=== PATIENT | male | born 1955 ===

== ENCOUNTER 2020-12-04 11:00 | Outpatient (CLI) | payer OTHER, SELFPAY | END 2020-12-04 11:01 | disposition home or self-care (01) | LOC: CHSCOVIDVC 11:00 | DX: Z23 Encounter for immunization (principal) | CPT/HCPCS: 0011A; 91301 ==

== ENCOUNTER 2021-01-01 10:34 | Outpatient (CLI) | payer OTHER, SELFPAY | END 2021-01-01 10:35 | disposition home or self-care (01) | LOC: CHSCOVIDVC 10:34 | DX: Z23 Encounter for immunization (principal) | CPT/HCPCS: 0012A; 91301 ==